=== PATIENT | male | born 1965 | race Caucasian/White ===

== ENCOUNTER 2017-02-15 01:01 | Inpatient (IN) | payer MEDICARE, OTHER ==
[~2017-02-15] VITALS: Ht 195.6 cm; Wt 98.6 kg
[~2017-02-15 01:01] MED LIST: ALBU18HF INH; ALPR-475 PO; ASPI-515 PO; CEFD300C37 PO; DULO60CA7 PO; FAMO-79 PO; FERR325T18 PO; HALO5TAB5 PO; LEVO25TA2 PO; LISI-167 PO; METO25TA35 PO; METR500T8 PO; NICO-487 TD; OMEP20CA9 PO; OXYC-307 PO; PANT40TA5 PO; PRED20TA PO; QUET400T4 PO; RISP2TAB35 PO; SIMV20TA3 PO; TRAM50TA2 PO; TRAZ50TA18 PO
[2017-02-15 01:31] LABS: BLOOD UREA NITROGEN 36 mg/dL (7-18)
[2017-02-15 01:32] LABS: HEMATOCRIT 48.2 % (39.2-51.8); HEMOGLOBIN 16.2 g/dL (13.7-18.0); WHITE BLOOD COUNT 11.6 x10^3/uL (3.4-10)
[2017-02-15 01:35] LABS: ASPARTATE AMINO TRANSFERASE 35 U/L (15-37)
[2017-02-15 01:39] LABS: ACETAMINOPHEN < 2 mcg/mL (10-30)
[2017-02-15] MEDS ORDERED: SODIUM CHLORIDE FLUSH 10ML SYR IVF ONE (02:00)
[2017-02-15] MEDS ORDERED: SODIUM CHLORIDE 0.9% 1,000ML IVBOLUS ONE (02:00)
[2017-02-15] MEDS ORDERED: LABETALOL 5MG/ML, 20ML IVPush ONE (02:30)
[2017-02-15] MEDS ORDERED: LABETALOL 5MG/ML, 20ML ONE (02:38)
[2017-02-15] MEDS ORDERED: ZIPRASIDONE 20 MG INJ IM ONE ×2 (02:38→03:00)
[2017-02-15] MEDS ORDERED: LABETALOL 5MG/ML, 20ML IVPush PRN (03:00)
[2017-02-15] MEDS ORDERED: hydrALAzine 20 MG/ML, 1ML IVPush PRN (03:00)
[2017-02-15] MEDS ORDERED: ONDANSETRON ODT 4 MG PO PRN (03:00)
[2017-02-15] MEDS ORDERED: POLYETHYLENE GLYCOL 17 GM PACKET PO PRN (03:00)
[2017-02-15] MEDS ORDERED: BISACODYL 10 MG SUPP PR PRN (03:00)
[2017-02-15] MEDS ORDERED: METO25TA35 PO (03:06)
[2017-02-15] MEDS: QUETIAPINE 100MG TABLET PO SCH ×2 (03:30→20:45)
[2017-02-15] MEDS ORDERED: LORazepam 2 MG/ML, 1ML ONE (04:51)
[2017-02-15] MEDS: LORazepam 2 MG/ML, 1ML IVPush PRN ×4 (04:52→18:34)
[2017-02-15] MEDS: SODIUM CHLORIDE 0.9% 1,000 ML IV SCH ×2 (05:05→10:10)
[2017-02-15 08:03] VITALS: BP 114/75
[2017-02-15 08:10] LABS: DAU SCREEN DISCLAIMER
[2017-02-15] MEDS: METOPROLOL TARTRATE 25 MG TABLET PO SCH ×2 (10:10→21:00)
[2017-02-15] MEDS: SENNA/DOCUSATE TABLET PO SCH (10:10)
[2017-02-15] MEDS: ASPIRIN 81 MG TABLET EC PO SCH (10:10)
[2017-02-15 14:37] VITALS: BP 99/54
[2017-02-15 19:03] VITALS: BP 109/64
[2017-02-15] MEDS: OXYcodone IR 5MG TABLET PO PRN (20:45)
[2017-02-16 00:47] VITALS: BP 90/57
[2017-02-16 05:38] LABS: HEMATOCRIT 37.1 % (39.2-51.8); HEMOGLOBIN 12.6 g/dL (13.7-18.0); WHITE BLOOD COUNT 7.8 x10^3/uL (3.4-10)
[2017-02-16 05:44] LABS: ASPARTATE AMINO TRANSFERASE 23 U/L (15-37); BLOOD UREA NITROGEN 26 mg/dL (7-18)
[2017-02-16] MEDS: ASPIRIN 81 MG TABLET EC PO SCH (06:29)
[2017-02-16 08:27] VITALS: BP 107/72
[2017-02-16] MEDS: SODIUM CHLORIDE 0.9% 1,000 ML IV SCH ×2 (08:36→18:05)
[2017-02-16] MEDS: LORazepam 2 MG/ML, 1ML IVPush PRN ×4 (08:36→22:38)
[2017-02-16] MEDS: SENNA/DOCUSATE TABLET PO SCH (08:39)
[2017-02-16] MEDS: METOPROLOL TARTRATE 25 MG TABLET PO SCH ×2 (08:39→20:29)
[2017-02-16 15:07] VITALS: BP 107/62
[2017-02-16] MEDS: CALCIUM CARBONATE 500 MG TAB.CHEW PO PRN ×2 (15:16→21:23)
[2017-02-16 18:34] VITALS: BP 112/68
[2017-02-16] MEDS: QUETIAPINE 100MG TABLET PO SCH (20:29)
[2017-02-16] MEDS: OXYcodone IR 5MG TABLET PO PRN (20:29)
[2017-02-16] MEDS ORDERED: OMEPRAZOLE 20 MG CAPSULE.DR PO ONE (23:00)
[2017-02-17 01:07] VITALS: BP 95/60
[2017-02-17 04:58] LABS: BLOOD UREA NITROGEN 18 mg/dL (7-18)
[2017-02-17] MEDS: ASPIRIN 81 MG TABLET EC PO SCH ×2 (05:50→08:04)
[2017-02-17] MEDS: SODIUM CHLORIDE 0.9% 1,000 ML IV SCH (06:39)
[2017-02-17 07:12] VITALS: BP 107/69
[2017-02-17] MEDS: METOPROLOL TARTRATE 25 MG TABLET PO SCH (08:04)
[2017-02-17] MEDS: LORazepam 1MG TABLET PO PRN ×2 (08:05→16:46)
[2017-02-17] MEDS: OXYcodone IR 5MG TABLET PO PRN ×2 (08:05→16:46)
[2017-02-17] MEDS: SENNA/DOCUSATE TABLET PO SCH (08:05)
[2017-02-17] MEDS ORDERED: LISINOPRIL 5 MG TABLET PO SCH (09:00)
[2017-02-17] MEDS ORDERED: OMEPRAZOLE 20 MG CAPSULE.DR PO SCH (17:00)
== END 2017-02-17 18:45 | DRG 683 ==
LOC: ED 02:09 → EDIP 03:12 → 3NW 07:44 → 3E 02-17 10:29
PROVIDERS: ADMIT Internal Medicine; ATTEND Family Medicine
DX: N17.0 Acute kidney failure with tubular necrosis (principal); F23 Brief psychotic disorder; E11.22 Type 2 diabetes mellitus with diabetic chronic kidney disease; R45.851 Suicidal ideations; F25.9 Schizoaffective disorder, unspecified; D50.9 Iron deficiency anemia, unspecified; F17.200 Nicotine dependence, unspecified, uncomplicated; N18.3 Chronic kidney disease, stage 3 (moderate); E78.5 Hyperlipidemia, unspecified; I12.9 Hypertensive chronic kidney disease with stage 1 through stage 4 chronic kidney disease, or unspecified chronic kidney disease; K21.9 Gastro-esophageal reflux disease without esophagitis; F31.9 Bipolar disorder, unspecified; I25.10 Atherosclerotic heart disease of native coronary artery without angina pectoris; I25.2 Old myocardial infarction; Z91.14 Patient's other noncompliance with medication regimen; Z95.5 Presence of coronary angioplasty implant and graft
CPT/HCPCS: 36415; 80048; 80053; 80061; 80307; 80329; 81001; 82140; 83036; 83735; 84439; 84443; 85025; 96372; 96374; J3486; G0479; G0480; J2060; J7030

== ENCOUNTER 2017-03-13 19:39 | Observation (INO) | payer MEDICARE, OTHER ==
[~2017-03-13] VITALS: Ht 195.6 cm; Wt 95.3 kg
[2017-03-13 20:46] LABS: HEMATOCRIT 46.2 % (39.2-51.8); HEMOGLOBIN 15.8 g/dL (13.7-18.0); WHITE BLOOD COUNT 8.9 x10^3/uL (3.4-10)
[2017-03-13 20:55] LABS: ASPARTATE AMINO TRANSFERASE 22 U/L (15-37); BLOOD UREA NITROGEN 16 mg/dL (7-18)
[2017-03-13 20:58] LABS: ACETAMINOPHEN < 2 mcg/mL (10-30)
[2017-03-13 21:28] LABS: DAU SCREEN DISCLAIMER
[2017-03-13] MEDS ORDERED: LORazepam 1MG TABLET ONE (22:45)
[2017-03-13] MEDS ORDERED: ALUMINUM/MAG/SIMETHICONE 30 ML UDC ONE (22:45)
[2017-03-13] MEDS ORDERED: LORazepam 1MG TABLET PO ONE (23:00)
[2017-03-13] MEDS ORDERED: ALUMINUM/MAG/SIMETHICONE 30 ML UDC PO PRN (23:00)
[2017-03-14] MEDS ORDERED: ONDANSETRON ODT 4 MG PO PRN
[2017-03-14] MEDS ORDERED: BISACODYL 10 MG SUPP PR PRN
[2017-03-14] MEDS ORDERED: POLYETHYLENE GLYCOL 17 GM PACKET PO PRN
[2017-03-14] MEDS ORDERED: NICOTINE 21 MG/24 HR PATCH.TD24 TD SCH
[2017-03-14 00:40] VITALS: BP 193/123
[2017-03-14 00:42] VITALS: BP 166/105
[2017-03-14] MEDS: OLANZAPINE 10 MG TABLET PO PRN (01:00)
[2017-03-14] MEDS: METOPROLOL TARTRATE 25 MG TABLET PO SCH ×3 (05:57→20:19)
[2017-03-14] MEDS: ACETAMINOPHEN 325 MG TABLET PO PRN (06:00)
[2017-03-14 08:30] VITALS: BP 119/67
[2017-03-14] MEDS: LISINOPRIL 10 MG TABLET PO SCH (09:28)
[2017-03-14] MEDS: SENNA/DOCUSATE TABLET PO SCH (09:28)
[2017-03-14] MEDS: CALCIUM CARBONATE 500 MG TAB.CHEW PO PRN ×3 (15:39→23:23)
[2017-03-14 19:57] VITALS: BP 129/89
[2017-03-15 07:45] VITALS: BP_SYST 151; BP_SYST 154; BP_DIAS 105; BP_DIAS 98
[2017-03-15] MEDS: CALCIUM CARBONATE 500 MG TAB.CHEW PO PRN ×3 (08:31→17:01)
[2017-03-15] MEDS: LISINOPRIL 10 MG TABLET PO SCH (08:39)
[2017-03-15] MEDS: METOPROLOL TARTRATE 25 MG TABLET PO SCH ×2 (08:39→19:54)
[2017-03-15] MEDS: SENNA/DOCUSATE TABLET PO SCH (08:39)
[2017-03-15] MEDS: NICOTINE 21 MG/24 HR PATCH.TD24 TD SCH (08:40)
[2017-03-15 19:50] VITALS: BP 169/113
[2017-03-15] MEDS: FAMOTIDINE 20 MG TABLET PO SCH (19:55)
[2017-03-15 21:22] VITALS: BP 156/93
[2017-03-16 07:41] VITALS: BP 149/94
[2017-03-16] MEDS: NICOTINE 21 MG/24 HR PATCH.TD24 TD SCH (08:00)
[2017-03-16] MEDS: METOPROLOL TARTRATE 25 MG TABLET PO SCH ×2 (09:00→20:18)
[2017-03-16] MEDS: LISINOPRIL 10 MG TABLET PO SCH (09:00)
[2017-03-16] MEDS: FAMOTIDINE 20 MG TABLET PO SCH ×2 (09:01→20:18)
[2017-03-16] MEDS: SENNA/DOCUSATE TABLET PO SCH (09:01)
[2017-03-16 19:54] VITALS: BP 119/89
[2017-03-16] MEDS: DIPHENHYDRAMINE 50 MG CAPSULE PO PRN (20:18)
[2017-03-17 07:15] VITALS: BP 114/76
[2017-03-17] MEDS: NICOTINE 21 MG/24 HR PATCH.TD24 TD SCH (08:00)
[2017-03-17] MEDS: OLANZAPINE 10 MG TABLET PO PRN ×2 (08:18→17:14)
[2017-03-17] MEDS: METOPROLOL TARTRATE 25 MG TABLET PO SCH ×2 (08:20→21:21)
[2017-03-17] MEDS: FAMOTIDINE 20 MG TABLET PO SCH ×2 (08:21→21:21)
[2017-03-17] MEDS: SENNA/DOCUSATE TABLET PO SCH (08:21)
[2017-03-17] MEDS: LISINOPRIL 10 MG TABLET PO SCH (08:21)
[2017-03-17] MEDS: DIPHENHYDRAMINE 50 MG CAPSULE PO PRN (17:13)
[2017-03-17 19:44] VITALS: BP 120/81
[2017-03-17] MEDS ORDERED: HALOPERIDOL 2 MG/ML ORAL SOL PO PRN (20:00)
[2017-03-17] MEDS ORDERED: HALOPERIDOL 5 MG TABLET ONE (20:12)
[2017-03-17] MEDS ORDERED: LORazepam 1MG TABLET PO PRN (22:00)
[2017-03-17] MEDS: ACETAMINOPHEN 325 MG TABLET PO PRN (22:16)
[2017-03-18] MEDS: SENNA/DOCUSATE TABLET PO SCH (07:44)
[2017-03-18] MEDS: LISINOPRIL 10 MG TABLET PO SCH (07:44)
[2017-03-18] MEDS: NICOTINE 21 MG/24 HR PATCH.TD24 TD SCH (07:44)
[2017-03-18] MEDS: OLANZAPINE 10 MG TABLET PO PRN (07:44)
[2017-03-18] MEDS: METOPROLOL TARTRATE 25 MG TABLET PO SCH (07:44)
[2017-03-18] MEDS: FAMOTIDINE 20 MG TABLET PO SCH (07:44)
[2017-03-18 07:46] VITALS: BP 116/77
== END 2017-03-18 11:47 ==
LOC: ED 20:01 → EDIP 03-14 00:19 → 3E 03-14 00:36
PROVIDERS: ADMIT Hospitalist; ATTEND Family Medicine
DX: R45.851 Suicidal ideations (principal); F25.9 Schizoaffective disorder, unspecified; D50.9 Iron deficiency anemia, unspecified; K21.9 Gastro-esophageal reflux disease without esophagitis; E78.5 Hyperlipidemia, unspecified; I25.10 Atherosclerotic heart disease of native coronary artery without angina pectoris; E11.22 Type 2 diabetes mellitus with diabetic chronic kidney disease; I12.9 Hypertensive chronic kidney disease with stage 1 through stage 4 chronic kidney disease, or unspecified chronic kidney disease; N18.3 Chronic kidney disease, stage 3 (moderate); F12.90 Cannabis use, unspecified, uncomplicated; F31.9 Bipolar disorder, unspecified; I25.2 Old myocardial infarction; F17.210 Nicotine dependence, cigarettes, uncomplicated; F15.90 Other stimulant use, unspecified, uncomplicated; Z95.5 Presence of coronary angioplasty implant and graft
CPT/HCPCS: 36415; 80053; 80307; 80329; 85025; 99285; G0378; G0479; G0480